=== PATIENT | male | born 1965 ===

== ENCOUNTER 2025-07-29 07:55 | Emergency (ER) | payer BC ==
[2025-07-29 08:07] VITALS: TEMP 97; O2SAT 97
[2025-07-29] MEDS ORDERED: Adacel Vial IM ONE (08:09)
[2025-07-29] MEDS ORDERED: KEFLEX 500 MG ONE (08:15)
[2025-07-29] MEDS ORDERED: BACIGUENT PACKET ONE (08:15)
[2025-07-29] MEDS ORDERED: XYLOCAINE 1% HCL 20 ML MDV ONE (08:19)
[2025-07-29] MEDS: XYLOCAINE 1% HCL 20 ML MDV IJ ONE (08:20)
--- NOTE | 2025-07-29 08:20 | ERPHSYRPT ---
- History of Present Illness Time Seen by Provider: 07/29/25 08:15 Source: patient, family Exam Limitations: no limitations Patient Subjective Stated Complaint: patient stated he had been unhooking a fish hook from umbrella and hooked self with barbed fish hook to right thumb Triage Nursing Assessment: patient presents to ed via private vehicle, able to ambulate into ed without complication, patient has fish hook lodged in right thumb, patient alert and oriented x 4, skin p/w/d Physician History: Pt had onset of fish hook right thumb accidental - no other reported injuries or symptoms. Full ROM without pain, nontender vianney structures. Tendon function flex/ext proximal and distal phal all intact. N/V intact distally. Discussed with pt and available family risks and benefits of removal by advancement of the nikolay and local lidocaine and Antibiotic, update of TDAP and they wish to proceed so these are ordered. Results discussed with pt and available family Pt and family were advised of the limitations of evaluation performed and the possibility of retained FB or debris and limits of procedure and the risks for infection. They voice their understanding and at this time and they will f/u and be aware for complications to return. Occurred: just prior to arrival Method of Injury: other Quality: constant, sharpness Severity of Pain-Max: moderate Severity of Pain-Current: moderate Extremities Pain Location: thumb: right Modifying Factors: Improves With: movement Associated Symptoms: none Allergies/Adverse Reactions: erythromycin base Allergy (Verified 07/29/25 08:04) Hx Tetanus, Diphtheria Vaccination/Date Given: No Travel Risk - International Travel Have you traveled outside of the country in past 3 weeks: No - Emerging Infectious Disease Are you exhibiting symptoms associated with any current EIDs: No - Review of Systems Constitutional: No Fever, No Chills Eyes: No Symptoms Ears, Nose, & Throat: No Symptoms Respiratory: No Cough, No Dyspnea Cardiac: No Chest Pain, No Edema, No Syncope Abdominal/Gastrointestinal: No Abdominal Pain, No Nausea, No Vomiting, No Diarrhea Genitourinary Symptoms: No Dysuria Musculoskeletal: Other (fish hook right thumb), No Back Pain, No Neck Pain Skin: No Rash Neurological: No Dizziness, No Focal Weakness, No Sensory Changes Psychological: No Symptoms Endocrine: No Symptoms Hematologic/Lymphatic: No Symptoms Immunological/Allergic: No Symptoms All Other Systems: Reviewed and Negative - Past Medical History Pertinent Past Medical History: Yes Cardiac History: High Cholesterol, Hypertension GI Medical History: GERD - Past Surgical History Past Surgical History: Yes Musculoskeletal: Orthopedic Surgery Other Surgical History: back, upper spine, lower right leg, vasectomy, hernia. cervical fusion, lumbar disc removal, - Social History Smoking Status: Current every day smoker Exposure to second hand smoke: Yes Drug Use: none - Social Determinants of Health Will the patient participate in the screening: Yes Do you worry about a steady place to live?: No Do you have any problems with any of the following?: No known problems In the past 12 months,have you had to go without utilities?: No Transportation Issues: No Has anyone in your support network made you feel unsafe?: No Have you or anyone in your house had to go w/o enough food: No - Nursing Vital Signs Nursing Vital Signs: Initial Vital Signs Temperature 97 F 07/29/25 07:57 Pulse Rate 89 07/29/25 07:57 Respiratory Rate 16 07/29/25 07:57 Blood Pressure 136/73 07/29/25 07:57 O2 Sat by Pulse Oximetry 97 07/29/25 07:57 Pain Scale Pain Intensity 8 - Physical Exam General Appearance: no apparent distress, alert Eyes, Ears, Nose, Throat Exam: moist mucous membranes Neck Exam: non-tender, supple Cardiovascular/Respiratory Exam: chest non-tender, normal breath sounds, regular rate/rhythm, no respiratory distress Abdominal Exam: non-tender, No guarding Back Exam: normal inspection, No vertebral tenderness Shoulder Exam: normal inspection, non-tender, no evidence of injury, normal ROM Elbow/Forearm Exam: normal inspection, non-tender, no evidence of injury, normal ROM Wrist Exam: normal inspection, non-tender, no evidence of injury, normal ROM Hand Exam: non-tender, normal ROM, soft tissue tenderness (right thumb injury fish hook) DTR - Upper Extremity Exam: bicep (R): 2+, bicep (L): 2+, tricep (R): 2+, tricep (L): 2+ Neuro/Tendon Exam: normal sensation, normal motor functions, normal tendon functions Mental Status Exam: alert, oriented x 3, cooperative Skin Exam: normal color, warm, dry SpO2 Interpretation: normal SpO2: 97 O2 Delivery: Room Air Procedures - Incision and Drainage Time of Procedure: 08:23 Site: right thumb Anesthesia: 1% Lidocaine cc's of anesthesia: 3 I & D Procedure: hibiclens prep, irrigated with normal saline Results: other (fish hook removed by advancement and clipping nikolay) - Course Nursing assessment & vital signs reviewed: Yes Ordered Tests: Medication Summary Discontinued Medications Generic Name Dose Route Start Last Admin Trade Name Lashanda PRN Reason Stop Dose Admin Bacitracin Zinc Confirm 07/29/25 08:15 Bacitracin Packet 1 Each Pckt Administered 07/29/25 08:16 Dose 1 each .ROUTE .STK-MED ONE Cephalexin HCl Confirm 07/29/25 08:15 Cephalexin Mh500 Mg Capsule Administered 07/29/25 08:16 Dose 500 mg .ROUTE .STK-MED ONE Diphtheria/Tetanus/Acell Pertussis Confirm 07/29/25 08:09 Tdap --Diph,Pertuss(Acell),Tet Vac/Pf 0.5 Ml Vial Administered 07/29/25 08:10 Dose 0.5 ml IM .STK-MED ONE Lidocaine HCl 10 ml 07/29/25 08:16 Lidocaine Hcl 1% 20 Ml Mdv 20 Ml Ml IJ 07/29/25 08:17 STAT ONE - Progress Progress: improved, re-examined Counseled pt/family regarding: diagnosis, need for follow-up Medical Desision Making - Independent Historian Additional History obtained from: Family - Discussion of managment Reviewed:: Need for additional workup Agreed on:: Treatment plan, need for follow-up - Diagnostic Testing Diagnostic test were ordered, analyzed, and reviewed by me: No - Risk of complications The pt has a mod risk of morbidity or mortality based on: Need for prescription drug management - Departure Departure Disposition: Home Clinical Impression: Fish hook injury of right thumb Condition: Good Critical Care Time: No Referrals: DOCTOR,NO FAMILY [Primary Care Provider, UNKNOWN] - Follow up/PCP as directed Instructions: Removal of Foreign Body in Skin, Foreign Body in Skin ED, Removing objects stuck in the skin Additional Instructions: Soak in warm epsom salts twice daily until healed, APply bactroban after soaking and fresh bandage. There can still be traces of foreign matter and there is some risk for infection so this is the reason for soaking and the antibiotics. Return of see your Dr. if there is any redness , drainage , swelling, increased pain or other concerns. Followup with your Dr. Keep the wound clean and dry until healed. Prescriptions: Mupirocin [Bactroban OINTMENT] 22 gm TP BID 10 Days #1 cartridge Cephalexin Mh 500 mg [Keflex 500 mg] 500 mg PO TID #30 cap
[2025-07-29] MEDS: BACIGUENT PACKET TP ONE (08:24)
[2025-07-29] MEDS: KEFLEX 500 MG PO ONE (08:26)
[2025-07-29 08:40] VITALS: BP 124/88; PULSE 63; RESP 16
[2025-07-29] MEDS: Adacel Vial IM ONE (08:44)
== END 2025-07-29 08:36 | disposition home or self-care (01) ==
LOC: ED 07:55
DX: S61.041A Puncture wound with foreign body of right thumb without damage to nail, initial encounter (principal); W45.3XXA Fishing hook entering through skin, initial encounter; I10 Essential (primary) hypertension; Z79.899 Other long term (current) drug therapy; Z72.0 Tobacco use; Z23 Encounter for immunization